=== PATIENT | male | born 1975 | race Caucasian/White ===

== ENCOUNTER 2016-07-02 12:40 | Emergency (ER) | payer OTHER ==
[~2016-07-02] VITALS: Ht 180.3 cm; Wt 86.4 kg
[~2016-07-02 12:40] MED LIST: BUPR1FIL3 SL; CLIN-78 PO; WARF5TAB7 PO
[2016-07-02 12:44] VITALS: BP 184/108; PULSE 64; RESP 12; O2SAT 98
--- NOTE | 2016-07-02 12:59 | ED.REPORT ---
HPI-General Illness Date of Service Jul 02, 2016 ED Provider: Mala MontoyaO. A 41 year old male with a history of hypertension, depression, blood clot in the arm, and substance abuse presents [facility] with high blood pressure (184/108 in ED) onset today. 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 The patient denies other complaints at this time. Nursing Notes Stated Complaint: HIGH BP Chief Complaint: General Complaint Nursing Notes Reviewed: Yes Allergies: Coded Allergies: No Known Allergies (Unverified , 03/22/16) Scheduled Buprenorphine HCl/Naloxone HCl (Suboxone 8 mg-2 mg Sl Film) 1 Each Film 1.5 EACH SL DAILY Buprenorphine HCl/Naloxone HCl (Suboxone 8 mg-2 mg Sl Film) 1 Each Film 1 EACH SL BID Clindamycin (Clindamycin) 300 Mg Capsule 300 MG PO TID Warfarin Sodium (Warfarin Sodium) 5 Mg Tablet 5 MG PO DAILY General Time Seen by MD: 12:59 Chief Complaint Other (High Blood Pressure) Hx Obtained From: Patient Arrived By: Walk-in Sudden in Onset?: No Onset Occurred: 1 - 4 hours ago Symptom Duration: Since onset Severity: Current: No pain currently Severity: Maximum: No pain Associated with: Denies: Fever Pertinent Negative: Relieved by nothing Context Related History: Reports Depression, Reports Drug dependence Recent Healthcare: No recent doctor visit Similar Sx Previous: Yes Past Medical History Past Medical History HTN Depression Substance Abuse Blood clot in arm previously on anticoagulants Past Surgical History None reported Smoking History Current Every Day Smoker Social History Lives in [place] Drug Use: In recovery, IV drugs, Other Occupation Patient reports he works at a [employer] Ambulatory Status Independent Review of Systems + Hypertension (184/108 in ED) Full Review of Systems Constitutional: Denies: Fever Respiratory: Denies: Non-productive cough, Shortness of breath GI: Denies: Vomiting Complete sys rev & neg: except as marked. Physical Exam Vital Signs Vital Signs Date Time Temp Pulse Resp B/P Pulse Ox O2 Delivery O2 Flow Rate FiO2 07/02/16 15:23 60 14 168/86 94 Room Air 07/02/16 14:03 62 175/90 07/02/16 12:44 36.6 64 12 184/108 98 Room Air Initial VS: Reviewed General/Constitutional: Well-developed, Well-nourished Head / Eyes: Atraumatic, Normocephalic, PERRL ENT: Mucous membranes moist, Conjunctiva normal, No scleral icterus Respiratory: Breath sounds normal, Clear to auscultation, No respiratory distress Cardiovascular: Regular rate & rhythm, Heart sounds normal Abdomen / GI: Soft, Non-tender Back: No CVA tenderness Extremities: Vascular intact, Neuro intact, No swelling, No tenderness Skin: Warm, Dry, No cyanosis Psychiatric: Mood/affect normal, Behavior normal, Normal thought content General/Constitutional: Awake, Alert Neurologic: Oriented X3, Speech NL, CN II - XII intact Interpretation & Diagnostics Lab Results Interpretation Result Diagram: 07/02/16 1320 07/02/16 1320 Test 07/02/16 13:20 White Blood Count 9.7th/mm3 (3.8-10.1) Red Blood Count 5.11mil/mm3 (4.40-5.80) Hemoglobin 15.0g/dL (13.8-17.2) Hematocrit 42.3% (41.0-50.0) Mean Corpuscular Volume 82.8fL (81-100) Mean Corpuscular Hemoglobin 29.4pg (27.0-35.0) Mean Corpuscular Hemoglobin Concent 35.5% (32.0-37.0) Red Cell Distribution Width 13.2% (12.3-15.4) Platelet Count 329bil/L (150-400) Neutrophils (%) (Auto) 86.4% (40-74) Lymphocytes (%) (Auto) 10.0% (14-46) Monocytes (%) (Auto) 3.0% (4-12) Eosinophils (%) (Auto) 0% (0-5) Basophils (%) (Auto) 0.2% (0-3) Sodium Level 133mEq/L (134-144) Potassium Level 3.7mEq/L (3.5-5.2) Chloride Level 96mEq/L (97-108) Carbon Dioxide Level 22mmol/L (18-29) Blood Urea Nitrogen 11mg/dL (6-24) Creatinine 0.51mg/dL (0.76-1.27) Estimat Glomerular Filtration Rate 189mL/min (>59) Glucose Level 126mg/dL (60-99) Calcium Level 9.2mg/dL (8.5-10.1) Total Bilirubin 0.5mg/dL (0.0-1.2) Aspartate Amino Transf (AST/SGOT) 14U/L (0-50) Alanine Aminotransferase (ALT/SGPT) 12U/L (0-44) Alkaline Phosphatase 89U/L (25-150) Total Protein 7.7g/dL (6.4-8.4) Albumin 4.0g/dL (3.4-5.0) Re-Eval/Medical Decision Med Decision/Clinical Course Clonidine seems like a reasonable choice while he is going through withdrawal. He is not on any other sedatives. He is not on anything else that would lower his heart rate. I think long-term blood pressure management to be addressed when he gets out of sobering services. He no longer wishes to take the warfarin. I did ask him to talk to his primary care about this to decide if this is something is going to need to at least consider. Certainly no signs of a life-threatening or limb threatening thromboembolic phenomenon right now. I certainly cannot force him to take warfarin. I do recommend close outpatient follow-up. Source of Hx: Old records Time of Eval: 14:00 Patient Status: Condition improved Re-Evaluation/Progress Note: Discussed with patient lab results, diagnosis, and plan for discharge back to [facility]. Follow-up and return to the ER instructions given. Patient agrees with plan for care and all questions were addressed. Counseled Regarding: Diagnosis, Lab results, Need for follow-up, When/why to return to ED Discharge & Departure Primary Impression: Hypertension Hypertension type: essential hypertension Hypertension goal: less than 140/ 90 Qualified Code: I10 - Essential (primary) hypertension Disposition: Home Discharge Condition All VS Reviewed: Yes Condition: Stable Patient Instructions: Chronic Hypertension (ED) Additional Instructions: Thank you for entrusting us with your care. Please take Clonidine twice daily, as prescribed. Do not take sedating medication while taking the Clonidine. This may not be the medication your doctor will want you on long-term. Call the referred clinic tomorrow for a follow-up appointment to discuss other possible antihypertensives and the potential need for restarting Warfarin. Return to the ER with any new or worsening symptoms. Referrals: Chioma Benoit MD (PCP) Scribe Attestation Portions of this note were transcribed by Karina Mendez. I, Dr. Spain, personally performed the history, physical exam, and medical decision-making; I reviewed and confirmed the accuracy of the information in the transcribed note. Signed by: Flavio Almazan, 07/02/2016, 14:39 copies to: Chioma Benoit MD, Todd P DO Jul 02, 2016 12:59 KARINA MENDEZ Jul 02, 2016 13:20
[2016-07-02] MEDS ORDERED: cloNIDine 0.1 mg Tablet PO ONE (13:15)
[2016-07-02 13:31] LABS: BASOPHILS % (AUTO) 0.2 % (0-3); EOSINOPHILS % (AUTO) 0 % (0-5); Mean Corpuscular Hemoglobin 29.4 pg (27.0-35.0); Mean Corpuscular Volume 82.8 fL (81-100); NEUTROPHILS % (AUTO) 86.4 % (40-74); Platelet Count 329 bil/L (150-400)
[2016-07-02 14:03] VITALS: BP 175/90; PULSE 62
[2016-07-02 15:23] VITALS: BP 168/86; PULSE 60; RESP 14; O2SAT 94
== END 2016-07-02 14:10 | disposition home or self-care (01) ==
LOC: SED 12:40
DX: I10 Essential (primary) hypertension (principal); F11.23 Opioid dependence with withdrawal; F17.200 Nicotine dependence, unspecified, uncomplicated; Z79.01 Long term (current) use of anticoagulants

== ENCOUNTER 2016-07-11 07:02 | Emergency (ER) | payer OTHER ==
[~2016-07-11] VITALS: Ht 180.3 cm; Wt 81.8 kg
[2016-07-11 07:09] VITALS: BP 160/97; PULSE 97; RESP 14; O2SAT 98
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
[2016-07-11] MEDS ORDERED: cefTRIAXone Inj 2,000 MG in Dextrose 5% Minibag Plus 50 ML IV ONE (08:00)
[2016-07-11 08:29] LABS: BASOPHILS % (AUTO) 0.9 % (0-3); EOSINOPHILS % (AUTO) 1.7 % (0-5); MONOCYTES % (AUTO) 11.5 % (4-12); Mean Corpuscular Hemoglobin 29.4 pg (27.0-35.0); Mean Corpuscular Volume 87.1 fL (81-100); NEUTROPHILS % (AUTO) 71.1 % (40-74); Platelet Count 231 bil/L (150-400)
[2016-07-11 10:44] VITALS: BP 119/66; PULSE 75; RESP 14; O2SAT 95
[2016-07-11] MEDS ORDERED: CLIN-78 PO (11:42)
[2016-07-11] MEDS ORDERED: SULF1TAB7 PO (11:42)
[2016-07-11 11:49] VITALS: BP 124/68; PULSE 88; RESP 16; O2SAT 97
== END 2016-07-11 11:50 | disposition home or self-care (01) ==
LOC: SED 07:02
DX: L03.116 Cellulitis of left lower limb (principal); T24.131A Burn of first degree of right lower leg, initial encounter; T31.0 Burns involving less than 10% of body surface; X17.XXXA Contact with hot engines, machinery and tools, initial encounter; Y92.9 Unspecified place or not applicable; Y93.89 Activity, other specified; Y99.8 Other external cause status; R07.89 Other chest pain; R05 Cough; R11.0 Nausea; I10 Essential (primary) hypertension; F11.21 Opioid dependence, in remission; F17.200 Nicotine dependence, unspecified, uncomplicated; Z79.01 Long term (current) use of anticoagulants
CPT/HCPCS: 36415; 80053; 83605; 85025; 87040; 90791; 96365; 96366; 96367; 99284; J0696; J3370; J7060